=== PATIENT | female | born 1930 | race Caucasian/White ===

== ENCOUNTER → 2017-02-07 | Outpatient (CLI) | payer OTHER ==
[~2017-02-07] MED LIST: AMLO-511 PO; ASPI81TA2 PO; EZET1TAB8 PO; IRBE150T51 PO; LANS30CA55 PO; LOTE5OS OD; OMEG1CAP76 PO; VICOT PO
== END | disposition home or self-care (01) ==
LOC: RADPV 12:25
PROVIDERS: ATTEND Legal Medicine
DX: M79.604 Pain in right leg (principal); M79.605 Pain in left leg; R60.0 Localized edema
CPT/HCPCS: 93925; 93970